=== PATIENT | female | born 1955 | race Caucasian/White ===

== ENCOUNTER 2022-05-16 15:28 | Outpatient (CLI) | payer MEDICARE, SELFPAY ==
[2022-05-16 17:13] LABS: SARS PCR* Negative SARS-CoV-2 (Negative)
== END 2022-05-16 15:29 | disposition home or self-care (01) ==
PROVIDERS: PCP Surgery; Visit Provider Ophthalmology
DX: Z20.822 Contact with and (suspected) exposure to COVID-19 (principal)
CPT/HCPCS: 87635

== ENCOUNTER 2022-05-18 11:43 | Day surgery (SDC) | payer MEDICARE, SELFPAY ==
[2022-05-18] MEDS: TETRACAINE 0.5% OPHTH 1 DROP EYE-RIGHT (12:12)
[2022-05-18 12:15] VITALS: BMI 39.6
[2022-05-18] MEDS: KETOROLAC OPHTH 0.5% 1 DROP EYE-RIGHT ×3 (12:18→12:38)
[2022-05-18 12:20] VITALS: BP 180/82; PULSE 69; RESP 20; TEMP 36.7; O2SAT 97
[2022-05-18] MEDS: BRIMONIDINE TARTRATE 0.2% OPHTH 1 DROP EYE-RIGHT (13:59)
[2022-05-18] MEDS: TETRACAINE 0.5% OPHTH 2 DROP EYE-RIGHT (14:42)
[2022-05-18] MEDS: BALANCED SALT IRRIG SOLN 15 ML EYE-RIGHT (14:46)
--- NOTE | 2022-05-18 15:06 | W.ANESCHARGE ---
Anesthesia Charges Start Date/Time Anesthesia Start Date: 05/18/22 Anesthesia Start Time: 14:35 Stop Date/Time Anesthesia Stop Date: 05/18/22 Anesthesia Stop Time: 15:02 Summary Emergency: No
[2022-05-18 15:07] VITALS: BP 130/58; PULSE 62; RESP 16; TEMP 36.3; O2SAT 95
--- NOTE | 2022-05-18 19:36 | PM.PROC ---
Procedure Note Date Seen: 05/18/22 Will [facility] bill your pro fee for this procedure?: No Procedure Description: phaco right eye. indications: painless progressive lsos of vison right eye glass dont help over past several years severity 02/27 kae franklin unable to correct with glasses explained r b and a pt undrstnds accepts an elect to proceed complications nont right pupil dileted tropicamide phenylephrine vigamox, ocufen times three. pt marked broutght to or pause carried out correct pt, procedure iol power. sterile prep drape lid pe placed paracentesis 12 oclock filled ac with ovd, continuous capulotmy performed hydrodissection with local phaco in bag chop technique, iioldcboo=15.5 into cpsular bag after cleaning cortex iol centered ovd removed incision hydrated returne d in good condition tolerated well Surgeon: Frank Young MD
--- NOTE | 2022-05-19 06:33 | W.ANESCHARGE ---
Anesthesia Charges Start Date/Time Anesthesia Start Date: 05/18/22 Anesthesia Start Time: 14:35 Stop Date/Time Anesthesia Stop Date: 05/18/22 Anesthesia Stop Time: 15:02 Summary Emergency: No
== END 2022-05-18 15:28 | disposition home or self-care (01) ==
LOC: OR 11:44
PROVIDERS: PCP Surgery; Visit Provider Ophthalmology
PROC: (CPT 66984; principal; 2022-05-18 13:00)
DX: H26.9 Unspecified cataract (principal)
CPT/HCPCS: 66984; 00142; A9270; J2250; J3010; S0020; V2632

== ENCOUNTER 2022-07-23 12:50 | Emergency (ER) | payer OTHER, MEDICARE, SELFPAY ==
[2022-07-23 13:27] VITALS: PULSE 64; RESP 18; TEMP 35.8; O2SAT 95; BMI 38.4
--- NOTE | 2022-07-23 13:33 | CRLHL7_ITS ---
For Patients: As a result of the Cures Act, medical imaging exams and procedure reports are released immediately into your electronic medical record. You may view this report before your referring provider. If you have questions, please contact your health care provider. HISTORY: Fall. Right shoulder pain. TECHNIQUE: Three views of the right shoulder. COMPARISON: No prior. FINDINGS: There is an acute mildly displaced fracture of the right proximal humerus involving the greater tuberosity and neck. No glenohumeral joint dislocation. The AC joint is intact. IMPRESSION: 1. Acute mildly displaced fracture the right proximal humerus involving the greater tuberosity and neck. 2. No glenohumeral joint dislocation. Dictated by David Jovel MD @ 07/23/2022 2:31:58 PM Dictated by: David Jovel MD @ 07/23/2022 14:32:03 (Electronically Signed)
--- NOTE | 2022-07-23 13:43 | ED_ITS ---
HPI - General Adult General Chief complaint: Fall/Minor Trauma Stated complaint: fell, injured shoulder Time Seen by Provider: 07/23/22 13:24 Source: patient Mode of arrival: ambulatory Limitations: no limitations History of Present Illness HPI narrative: 67-year-old female coming in today complaining of shoulder pain. Patient states that she tripped over some wires at work and fell forward onto her right should er. Did not hit her head or lose consciousness. Complaining of diffuse shoulder pain. States that she can not move her arm. Related Data Home Medications Medication Instructions Recorded Confirmed No Known Home Medications 05/17/22 05/17/22 Allergies Allergy/AdvReac Type Severity Reaction Status Date / Time codeine Allergy Mild Unknown Verified 05/18/22 12:03 Review of Systems Status of ROS: Reports: 6 or more systems reviewed and unremarkable except as noted in History and below [facility] Surgical History History of appendectomy History of hysteroscopy Social History Smoking Status: Former smoker How often do you have a drink containing alcohol: never AUDIT-C Alcohol total score: 0 Exam Narrative: Exam Narrative: Overweight, well-developed patient in no acute distress. Alert and oriented. Patient speaks in full sentences without needing to catch her breath. HEENT: Normocephalic atraumatic. Pupils are equally round reactive to light. Extraocular muscles are intact. Conjunctivae are moist without any icterus noted. Moist mucous membranes. Cardiovascular: Heart is regular rate and rhythm S1 and S2 are present without any murmurs. Lungs: Clear to auscultation bilaterally no wheezes rhonchi or rales are appreciated. Patient takes deep breaths without any discomfort. Extremities: Bilateral shoulders have normal appearance without any contour de formities. There is no ecchymosis erythema noted of the right shoulder. She has diffuse tenderness to light touch over the entire shoulder. No tenderness over the upper arm. No tenderness over the clavicle. I do not notice any significant swelling. Patient holds the arm close to her body and refuses to move it. She starts to scream with any minimal attempt at passive motion. Skin: Well perfused without any obvious rashes. Const: Vital Signs, click to edit/add: Vital Signs - 24 hr 07/23/22 13:27 Temperature 96.5 F L Pulse Rate [Left P ulse Oximeter] 64 Respiratory Rate 18 Pulse Oximetry 95 Oxygen Delivery Me thod Room Air Course Course Hospital Course: Shoulder x-ray was obtained which, read by me, shows a proximal humeral fracture. Patient placed in a sling. Vital Signs Vital signs: Initial Vital Signs Temperature 96.5 F L 07/23/22 13:27 Temperature Source Temporal Artery Scan 07/23/22 13:27 Pulse Rate 64 07/23/22 13:27 Pulse Rhythm 07/23/22 13:27 Pulse Strength 3+ Normal 07/23/22 13:27 Respiratory Rate 18 07/23/22 13:27 Pulse Oximetry 95 07/23/22 13:27 Oxygen Delivery Method 07/23/22 13:27 Vital Signs Temperature 96.5 F L 07/23/22 13:27 Pulse Rate 64 07/23/22 13:27 Respiratory Rate 18 07/23/22 13:27 Pulse Oximetry 95 07/23/22 13:27 Oxygen Delivery Method 07/23/22 13:27 Temperature 96.5 F L 07/23/22 13:27 Pulse Rate 64 07/23/22 13:27 Respiratory Rate 18 07/23/22 13:27 Pulse Oximetry 95 07/23/22 13:27 Oxygen Delivery Method 07/23/22 13:27 Medical Decision Making MDM Narrative Medical decision making narrative: Proximal humeral fracture. Sling placed. Appointment with Orthopedics was scheduled. We discussed Tylenol for pain control, patient did not want other medications. Imaging Data xr shoulder: Attestation: I have reviewed the pertinent imaging results. Radiologist's impression: Three views of the right shoulder. COMPARISON: No prior. FINDINGS: There is an acute mildly displaced fracture of the right proximal humerus in volving the greater tuberosity and neck. No glenohumeral joint dislocation. The AC joint is intact. IMPRESSION: 1. Acute mildly displaced fracture the right proximal humerus involving the greater tuberosity and neck. 2. No glenohumeral joint dislocation. Discharge Plan Discharge Clinical Impression: Fracture of proximal end of humerus Patient Disposition: Home, Self-Care Condition: Stable Additional Instructions: You broke the top of your upper arm bone today. You will need to be in a sling for comfort. Okay to take Tylenol as needed. Recommend you move your wrist and fingers daily to maintain good range of motion. You will follow-up with orthopedics as scheduled. Prescriptions: No Action No Known Home Medications Follow Up/Referrals: Mazin Sweet MD [Primary Care Provider] - Stand Alone Forms: Vtap Info Instructions
== END 2022-07-23 14:54 | disposition home or self-care (01) ==
PROVIDERS: Emergency Provider Family Medicine; PCP Surgery
DX: S42.201A Unspecified fracture of upper end of right humerus, initial encounter for closed fracture (principal); W01.0XXA Fall on same level from slipping, tripping and stumbling without subsequent striking against object, initial encounter
CPT/HCPCS: 73030; 99283; 99284

== ENCOUNTER 2022-11-10 12:57 | Outpatient (CLI) | payer OTHER, MEDICARE, SELFPAY ==
--- NOTE | 2022-11-10 13:00 | MR_ITS ---
[address] [address] Phone:?[phone] Fax:?[phone] Referring Physician Information: Chapincito Blank M.D. [id number] [facility] [address] Phone:?[phone] Fax:?[phone] Patient:Daphne Palmer D.O.B:?1955 Sex:?Female Phone:?[phone] [facility] MRN:?[id number] Exam Date:?11/10/2022 ? EXAM: MRI EXAMINATION OF THE RIGHT SHOULDER CLINICAL INFORMATION: Right shoulder pain. Limited range of motion. Injury. Suspect rotator cuff tear. TECHNICAL INFORMATION: Coronal STIR as well as axial, sagittal and coronal PD and T2-weighted images were acquired. No prior studies for comparison. INTERPRETATION: Bones: There are moderate changes of bone marrow edema signal associated with residua of transverse fracturing involving the surgical neck of the humerus. Mild marrow edema signal and cystic change alongside the AC joint. Rotator Cuff: Series 8 images 7 and 8 as well as series 6 images 9 through 12 demonstrate a 1.6 cm AP segment of deep fiber tearing and fraying with resultant marked attenuation involving the mid to anterior supraspinatus tendon. More normal caliber tendon fibers are situated at approximately the mid humeral head level. There is no evidence for muscle belly atrophy. The infraspinatus tendon is intact without tear or significant tendinopathy. The teres minor tendon is intact. The subscapularis tendon is intact. No appreciable rotator cuff muscle belly atrophy. Coracoacromial arch: There is no discrete subacromial osseous spur. The bony acromiohumeral interval is measuring 6 to 7 mm. There is no thickening identified of the coracoacromial ligament. Acromioclavicular joint: Moderate AC joint DJD. Undersurface changes mildly deform the underlying supraspinatus. Mild fluid and edema signal within the subacromial/subdeltoid bursa areas. Biceps tendon: The long head biceps tendon is intact and nondisplaced from the bicipital groove. There is a mild to moderate appearance of intra-articular tendinopathy. Glenohumeral joint and labrum: No significant glenohumeral joint effusion. No discrete loose body within the joint. Osteochondral surfaces appear relatively preserved. There is tearing identified involving the superior aspect of the labrum. No other definite evidence for labral tear. No discrete paralabral cyst is identified. There is an increased signal intensity, indistinct appearance of the inferior glenohumeral capsule. There are adjacent changes of soft tissue edema signal. CONCLUSION: 1. Moderate bone marrow edema signal associated with residua of a transversely oriented fracture involving the surgical neck of the humerus. 2. There is a moderate-sized segment of deep fiber tearing and fraying with resultant marked attenuation of the supraspinatus tendon insertion. More normal appearing tendon fibers are situated at approximately the mid humeral head level. No muscle belly atrophy. 3. Moderate AC joint DJD with mild narrowing of the acromiohumeral interval. Mild subacromial/subdeltoid bursitis. 4. Mild to moderate intra-articular long head biceps tendinopathy. 5. MRI appearance of the inferior glenohumeral capsule as may be associated with capsular sprain injury versus component of adhesive capsulitis. 6. Tearing through the superior labrum, without paralabral cyst. KES Electronically signed on 11/10/2022 2:35:00 PM by Luis Silverio M.D.
== END 2022-11-10 12:58 | disposition home or self-care (01) ==
PROVIDERS: PCP Surgery; Visit Provider Orthopaedic Surgery Sports Medicine
DX: M25.511 Pain in right shoulder (principal); M75.101 Unspecified rotator cuff tear or rupture of right shoulder, not specified as traumatic; M75.01 Adhesive capsulitis of right shoulder; M19.011 Primary osteoarthritis, right shoulder; M75.51 Bursitis of right shoulder
CPT/HCPCS: 73221

== ENCOUNTER 2023-04-25 07:01 | Outpatient (CLI) | payer OTHER, MEDICARE, SELFPAY ==
--- NOTE | 2023-04-25 07:15 | MR_ITS ---
[address] [address] Phone:?[phone] Fax:?[phone] Referring Physician Information: Chapincito Blank M.D. [id number] [facility] [address] Phone:?[phone] Fax:?[phone] Patient:Daphne Palmer D.O.B:?1955 Sex:?Female Phone:?[phone] [facility] MRN:?[id number] Exam Date:?04/25/2023 EXAM: MRI of the RIGHT SHOULDER, without contrast CLINICAL: Evaluate for rotator cuff tear. COMPARISONS: MRI 11/10/2022. TECHNICAL: Multiplanar multisequence MRI of the right shoulder was obtained. SEDATION: None. CONTRAST: None. FINDINGS: Evaluation of the axial sequences is somewhat limited by motion artifact. Rotator cuff: Supraspinatus/Infraspinatus: Marked attenuation of the distal supraspinatus tendon appears similar to prior examination. No new infraspinatus tendon tear is identified. No evidence of interval increased fatty atrophy of the muscle bellies. Teres minor: No tendinosis, tear or atrophy. Subscapularis: Mild tendinosis of the distal tendon without significant tendon tear. No significant fatty atrophy of the muscle belly. Bursae: Subacromial-subdeltoid: Minimal bursal edema. Subcoracoid: No significant bursal fluid. Coracoacromial arch: Acromion morphology: Type II. No os acromiale. Acromiohumeral space: Within normal limits. Coracohumeral space: Within normal limits. Biceps tendon, long head: Tendinosis and superimposed partial interstitial tearing of the intra-articular tendon extending into the imaged proximal extra- articular tendon is increased compared to prior examination. No evidence of significant interval increased tendon displacement. Mild fluid about the imaged proximal extra-articular tendon. Glenohumeral joint: Physiologic volume of joint fluid. Articular cartilage: Focal deep chondral fissure/small 2 mm segment of high- grade chondral loss involves the far superior humeral head on coronal series 4 image 13-14. Chondral heterogeneity involving the remainder of the glenohumeral joint. Capsule: No convincing evidence of capsular thickening or injury. Labrum: Tearing of the superior labrum appears similar to prior examination. Mild scattered degenerative changes involving the remainder of the glenoid labrum also noted. No perilabral cyst identified. Bones: Chronic fracture deformity is seen to involve the proximal humerus with interval resolution of the previously identified bone marrow edema about the prior fracture site. No new osseous fracture site is identified. Acromioclavicular joint: Changes of arthrosis appear similar to prior examination. No new AC joint injury/widening. IMPRESSION: 1. Marked attenuation of the distal supraspinatus tendon similar to prior examination. Mild subscapularis tendinosis. No new full-thickness rotator cuff tendon tear identified. 2. Tendinosis and superimposed partial interstitial tearing of the intra- articular extending into the imaged proximal extra-articular long head biceps tendon, increased compared to prior exam. 3. Tearing of the superior labrum similar to prior exam. 4. Chronic fracture deformity involving the proximal humerus with resolution of the previously identified bone marrow edema about the prior fracture site. 5. Focal deep chondral fissure/small 2 mm segment of high-grade chondral loss involving the far superior humeral head. 6. AC joint arthrosis similar to prior exam. JCZ Electronically signed on 04/25/2023 1:00:00 PM by Kaiden Carson D.O.
== END 2023-04-25 07:02 | disposition home or self-care (01) ==
PROVIDERS: PCP Surgery; Visit Provider Orthopaedic Surgery Sports Medicine
DX: M19.011 Primary osteoarthritis, right shoulder (principal); M67.921 Unspecified disorder of synovium and tendon, right upper arm; M75.101 Unspecified rotator cuff tear or rupture of right shoulder, not specified as traumatic
CPT/HCPCS: 73221

== ENCOUNTER 2023-06-06 08:30 | Outpatient (RCR) | payer OTHER, MEDICARE, SELFPAY | END 2023-09-18 15:55 | disposition home or self-care (01) | PROVIDERS: PCP Surgery; Visit Provider Orthopaedic Surgery Sports Medicine | DX: M25.511 Pain in right shoulder (principal); M25.611 Stiffness of right shoulder, not elsewhere classified; Z51.89 Encounter for other specified aftercare | CPT/HCPCS: 97110; 97140; 97161; 97535 ==

== ENCOUNTER 2024-05-15 07:00 | Day surgery (SDC) | payer OTHER, MEDICARE, SELFPAY ==
[2024-05-15] VITALS (18 sets, daily range): BP systolic 124–172; BP diastolic 57–87; PULSE 50–84; RESP 14–16; TEMP 36.1–36.8; O2SAT 91–97; BMI 33.5
--- NOTE | 2024-05-15 07:40 | W.PM.H&PU ---
History & Physical Update History & Physical Update H&P Reviewed and patient assessed: No changes noted
[2024-05-15] MEDS: SODIUM CHLORIDE 0.9 % (FLUSH) 10 ML SYRINGE IVF (08:06)
[2024-05-15] MEDS: LACTATED RINGERS 1000 ML 1,000 ML 100 ML IV (08:06)
--- NOTE | 2024-05-15 08:12 | SUR.PREOP ---
TIME?OUT:?12 PT/RN/MDA?VERIFICATION?OF?SURGICAL?SITE,?PROCEDURE,?AND?CONSENT OBTAINED?PRIOR?TO?INVASIVE?PROCEDURE.
[2024-05-15] MEDS: fentaNYL 100 MCG/2 ML inj IVP (08:14)
[2024-05-15] MEDS: MIDAZOLAM HCL 1 MG/ML inj IVP (08:14)
[2024-05-15] MEDS: CEFAZOLIN 2 GM in 0.9 % SODIUM CHLORIDE Mini-bag 100 ML IVPB (09:17)
--- NOTE | 2024-05-15 09:25 | P.NB_ITS ---
Nerve Block Nerve Block Time Seen by Provider: 08:12 Date Seen: 05/15/24 Type of block requested by surgeon for post-operative analgesia: supraclavicular Side: right Time out performed: Yes Verification of patient name: Yes Verification of date of : Yes Site marking: site marked Name of person performing procedure: Vinod Continuous monitoring Was continuous monitoring of O2 sat, B/P, alarm security or surveillance monitor, recorded every 15 minutes?: Yes Procedure Checklist: sterile prep, needles and gloves Ultrasound guided. Images saved: Yes Medications given in 5ml increments after negative aspiration: Ropivicaine %: 0.5 mL: 20 Needle gauge: 22 Decadron (mg): 10 Precedex (mcg): 25 Patient tolerated procedure well: Yes Block Charges Block Charge (with Pro Fee): Brachial Plexus Use of Ultrasound Machine for Block: Yes- US Guidance/pain block
--- NOTE | 2024-05-15 09:25 | W.ANESCHARGE ---
Anesthesia Charges Start Date/Time Anesthesia Start Date: 05/15/24 Anesthesia Start Time: 08:58 Stop Date/Time Anesthesia Stop Date: 05/15/24 Anesthesia Stop Time: 10:56
[2024-05-15] MEDS: EPINEPHrine 1 MG in SODIUM CHLORIDE IRRIG SOLUTION 3,000 ML 9003 MG IRRIGATION ×3 (09:40→09:57)
[2024-05-15] MEDS: EPINEPHrine 1 MG in SODIUM CHLORIDE IRRIG SOLUTION 3,000 ML 3001 MG IRRIGATION ×2 (09:45→10:33)
--- NOTE | 2024-05-15 10:43 | P.ORPRC_ITS ---
Procedure Note Date of procedure: 05/15/24 Procedure: PREOPERATIVE DIAGNOSES: 1. Right shoulder rotator cuff tear. 2. Right shoulder AC joint arthrosis. 3. Right shoulder long head biceps partial-thickness tearing 4. Right shoulder labral tearing. 5. Right shoulder subacromial impingement syndrome. POSTOPERATIVE DIAGNOSES: 1. Right shoulder rotator cuff tear. 2. Right shoulder AC joint arthrosis. 3. Right shoulder long head biceps partial-thickness tearing 4. Right shoulder labral tearing. 5. 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 Right shoulder subacromial impingement syndrome. NAME OF OPERATION: 1. Right shoulder arthroscopic rotator cuff repair (high-grade partial- thickness infraspinatus tearing) 2. Right shoulder arthroscopic distal clavicle excision 3. Right shoulder arthroscopic extensive glenohumeral debridement 4. Right shoulder arthroscopic bursectomy, subacromial decompression/partial acromioplasty. SURGEON: Chapincito Blank MD VETERINARY LIVESTOCK INSPECTOR: Mazin Moid PA-C. Of note, a skilled primary teaching assistant was critical for this case to aide in patient positioning, suture manipulation, arm positioning, instrument positioning, and closure. ANESTHESIA: General plus preoperative supraclavicular block. EBL: 25 mL IMPLANTS: Arthrex 4.75 mm BioComposite SwiveLock suture anchor (x1); Arthrex 5.5 mm BioComposite SwiveLock suture anchor (x1) COMPLICATIONS: None evident INDICATIONS: The patient is a pleasant, 68-year-old female who sustained a right shoulder/proximal humerus fracture in the remote past after a fall from standing height. She was treated non operatively. Unfortunately, she continues to have weakness with elevation of her right upper extremity. This is resulted in also significant daily dysfunction. Physical exam and imaging were consistent with a rotator cuff tear. Given their findings, as well as the weakness and pain, and inadequate response to nonoperative management, recommendation was made for surgery. FINDINGS: Exam under anesthesia revealed stable shoulder with excellent range of motion. The diagnostic arthroscopy revealed grade 2-3 chondromalacia anterior humeral head. The Subscapularis tendon was intact and with a healthy attachment. The long head of the biceps tendon was intact at its origin with only mild low-grade partial-thickness tearing as it exited the shoulder on the deep surface. The superior rotator cuff tendon was found to be torn and high-g rade partial-thickness manner through the anterior infraspinatus/posterior supraspinatus junction. The labrum was degeneratively frayed in the anterior and superior aspects. No loose bodies were identified within the pouch or subscapularis recess. PROCEDURE: Following a thorough discussion of risks, benefits, and alternatives, consent was obtained and the right shoulder was marked. The martha ent was brought to the operating room and placed supine on the operating table. Induction of anesthesia was completed after preoperative supraclavicular block was administered in preop holding. Appropriate time out was performed identifying proper patient, site, and procedure. 2 g IV Ancef was administered within 1 hour of incision preoperatively. The right upper extremity was prepped and draped in the appropriate sterile fashion using ChloraPrep prep. This was after the patient was positioned in the beach chair with their head in neutral alignment and all bony prominences well padded. The shoulder was insufflated with 20mL of normal saline via an 18g spinal needle from a posterior approach. An 11 blade skin incision allowed a blunt trochar to be inserted and diagnostic arthroscopy to be performed with the findings as noted above. An anterior portal was established with an outside in technique. This allowed the probe to be inserted and confirm the diagnostic arthroscopic findings. The shaver was then inserted and allowed debridement of the anterior and superior labrum, anterior humeral head chondral tissue, and deep surface of the biceps tendon partial-thickness tearing. Following this, the upper border subscapularis was probed and found to be stable Thereafter, the subacromial space was entered. Here, a complete bursectomy and partial acromioplasty/subacromial decompression was performed with a combination of radiofrequency ablator, the shaver, and a 5.5 mm bur. Additionally, distal clavicle excision was performed with the bur. 8 mm of distal clavicle was re sected based on the with of our bur. Further inspection of the supraspinatus and infraspinatus rotator cuff was performed. This identified the tear as noted above. The margins of the tear were debrided, and the greater tuberosity was debrided with a combination of the apollo cautery, shaver, and bur on reverse setting. After gentle decortication, a single medial anchor was placed and single eyelet FiberTape suture was passed in a horizontal mattress fashion with the scorpion needle. Additionally, the eyelet sutures were passed independently allowing 4 tails to be passed through the rotator cuff tissue. It was brought to a single anchor further laterally. The rotator cuff showed excellent reapproximation of the greater tuberosity with good security upon probing. Prior to anchor furniture mover driver removal, the eyelet sutures were tugged on for each anchor and found that the anchor had excellent stability within the bone. The shoulder was placed through range of motion and found to be stable. The rotator cuff was re-probed and found to be stable. Instruments were removed. Excess fluid was drained, closure performed with 4-0 Monocryl and Steri-Strips. Dressings were applied. Sling was applied. The patient was awoken from anesthesia and transferred to the PACU in stable condition. A skilled primary teaching assistant was critical for this case to aid in patient positioning, limb positioning, skill to manipulate arthroscopic instruments and camera, suture management, patient safety, and closure. PLAN: 1. Elbow, forearm, wrist and digit range of motion as tolerated. 2. Encouraged ice. 3. Oxycodone for pain as needed. 4. Sling at all times except for ROM and showering. 5. Follow up with PA visit in 1-2 weeks for wound check. Initiate physical therapy following that visit for passive range of motion. Initiate active assisted range of motion at 6 weeks. May do pendulums now.
--- NOTE | 2024-05-15 10:58 | W.ANESCHARGE ---
Anesthesia Charges Start Date/Time Anesthesia Start Date: 05/15/24 Anesthesia Start Time: 08:58 Stop Date/Time Anesthesia Stop Date: 05/15/24 Anesthesia Stop Time: 10:56
--- NOTE | 2024-05-15 13:08 | SUR.PHASEII ---
Patient up to recliner. O2 discontinued. Patient on RA and O2 sats remained 92-93% throughout discharge paperwork review. Patient's mechanic welder truck driver contacted, ETA 30 minutes ([id number]).
--- NOTE | 2024-05-15 13:22 | SUR.PHASEII ---
Patient's O2 sats dipping to 89% RA. Patient encouraged to cough and take deep breaths. Patient provided incentive spirometer with instructions and given verbal instructions by telegraphic typewriter mechanic. Patient verbalized understanding.
--- NOTE | 2024-05-15 13:49 | SUR.PHASEII ---
Patient o2 sats RA improved with IS use. 94% RA. Patient verbalized understanding to continue IS use at home.
== END 2024-05-15 13:50 | disposition home or self-care (01) ==
PROVIDERS: PCP Surgery; Visit Provider Orthopaedic Surgery Sports Medicine
PROC: (CPT 29805; principal; 2024-05-15 09:15)
DX: M75.101 Unspecified rotator cuff tear or rupture of right shoulder, not specified as traumatic (principal); M19.011 Primary osteoarthritis, right shoulder; S46.111A Strain of muscle, fascia and tendon of long head of biceps, right arm, initial encounter; S43.431A Superior glenoid labrum lesion of right shoulder, initial encounter; M75.41 Impingement syndrome of right shoulder; G89.18 Other acute postprocedural pain
CPT/HCPCS: 29827; 29826; 29824; 29823; 01630; 64415; 76942; C1713; J0171; J0330; J0690; J1100; J2250; J2371; J2405; J2704; J2795; J3010; J7120; L3670

== ENCOUNTER 2025-02-20 13:00 | Outpatient (RCR) | payer OTHER, MEDICARE, SELFPAY | END 2025-06-20 23:59 | disposition home or self-care (01) | PROVIDERS: PCP Surgery; Visit Provider Orthopaedic Surgery Sports Medicine | DX: Z48.89 Encounter for other specified surgical aftercare (principal); M25.511 Pain in right shoulder; Z51.89 Encounter for other specified aftercare | CPT/HCPCS: 97110; 97140; 97162; 97170; 97545 ==